=== PATIENT | female | born 1975 | race Two or more races ===

== ENCOUNTER 2016-04-05 12:42 | Emergency (ER) | payer MEDICAID ==
[~2016-04-05] VITALS: Ht 149.9 cm; Wt 98.9 kg
[2016-04-05 17:28] VITALS: BP 101/62
[2016-04-05] MEDS ORDERED: ALBUTEROL SULF 2.5 MG/0.5ML(0.5%) NEB SOLN NEB ONE ×2 (17:45→19:30)
[2016-04-05] MEDS ORDERED: IPRATROPIUM BROM 0.5 MG/2.5ML INH SOL NEB ONE ×2 (17:45→19:30)
[2016-04-05] MEDS ORDERED: methylPREDNISolone SOD SUCC 125 MG/2 ML VL IV ONE (17:45)
== END 2016-04-05 20:45 | disposition home or self-care (01) ==
LOC: ER 12:42
DX: J45.909 Unspecified asthma, uncomplicated (principal); J20.9 Acute bronchitis, unspecified; I10 Essential (primary) hypertension; E07.9 Disorder of thyroid, unspecified
CPT/HCPCS: 71020; 93005; 94640; 96374; 99284; J2930

== ENCOUNTER 2017-04-09 13:24 | Emergency (ER) | payer MEDICAID ==
[~2017-04-09] VITALS: Ht 149.9 cm; Wt 91.2 kg
[2017-04-09 13:38] VITALS: BP 125/80
== END 2017-04-09 16:32 | disposition left against medical advice (07) ==
LOC: ER 13:24
DX: K04.7 Periapical abscess without sinus (principal); Z53.21 Procedure and treatment not carried out due to patient leaving prior to being seen by health care provider

== ENCOUNTER 2017-05-19 11:42 | Emergency (ER) | payer MEDICAID ==
[~2017-05-19] VITALS: Ht 149.9 cm; Wt 99.3 kg
[2017-05-19 12:14] VITALS: BP 94/64
[2017-05-19] MEDS ORDERED: IPRATROPIUM BROM 0.5 MG/2.5ML INH SOL NEB ONE (13:00)
[2017-05-19] MEDS ORDERED: ALBUTEROL SULF 2.5 MG/0.5ML(0.5%) NEB SOLN NEB ONE (13:00)
== END 2017-05-19 14:10 | disposition home or self-care (01) ==
LOC: ER 11:42
DX: J45.901 Unspecified asthma with (acute) exacerbation (principal); G89.29 Other chronic pain; M54.5 Low back pain; I10 Essential (primary) hypertension
CPT/HCPCS: 71046; 94640

== ENCOUNTER 2017-05-22 08:27 | Emergency (ER) | payer MEDICAID ==
[~2017-05-22] VITALS: Ht 149.9 cm; Wt 99.3 kg
[2017-05-22 08:51] VITALS: BP 115/83
[2017-05-22] MEDS ORDERED: ALBUTEROL SULF 2.5 MG/0.5ML(0.5%) NEB SOLN NEB ONE (09:00)
[2017-05-22] MEDS ORDERED: IPRATROPIUM BROM 0.5 MG/2.5ML INH SOL NEB ONE (09:00)
[2017-05-22] MEDS ORDERED: IBUPROFEN 800 MG TAB PO ONE ×2 (10:04→10:15)
== END 2017-05-22 11:55 | disposition home or self-care (01) ==
LOC: ER 08:27
DX: J02.9 Acute pharyngitis, unspecified (principal); J45.909 Unspecified asthma, uncomplicated; I10 Essential (primary) hypertension; E07.9 Disorder of thyroid, unspecified; E66.01 Morbid (severe) obesity due to excess calories; Z68.41 Body mass index [BMI] 40.0-44.9, adult
CPT/HCPCS: 71045; 87804; 94640

== ENCOUNTER 2017-11-28 11:09 | Observation (INO) | payer MEDICAID ==
[~2017-11-28] VITALS: Ht 149.9 cm; Wt 90.7 kg
[2017-11-28 11:54] LABS: Basophils # (auto) 0.1 uL; Eosinophils # (auto) 0.2 uL; Hemoglobin 9.6 g/dL (12.2-16.2); Lymphocytes # (auto) 2.1 uL; Monocytes # (auto) 0.4 uL; Platelet Count (auto) 255 10^3/uL (140-450)
[2017-11-28] MEDS ORDERED: SODIUM CHLORIDE 0.9% 1,000 ML IVB ONE (11:54)
[2017-11-28 11:58] LABS: Basophils % (auto) 1.1 % (0.0-2.0); Eosinophils % (auto) 2.4 % (0.0-7.0); Hematocrit 31.4 % (36.0-46.0); Lymphocytes % (auto) 27.3 % (10.0-50.0); Mean Corpuscular Hemoglobin 20.8 pg (28.0-32.0); Mean Corpuscular Hgb Conc. 30.7 g/dL (32.0-36.0); Mean Corpuscular Volume 67.7 fL (80.0-100.0); Monocytes % (auto) 4.9 % (0.0-12.0); Neutrophils % (auto) 64.3 % (37.0-80.0); Nucleated Red Blood Cells % 0.1 %; Red Blood Cells 4.64 10^6/uL (4.0-5.20); Red Cell Distribution Width 19.8 % (11.8-14.3); White Blood Cell 7.7 10^3/uL (4.4-10.8)
[2017-11-28] MEDS ORDERED: ONDANSETRON HCL 4 MG/2 ML VIAL IV ONE (12:00)
[2017-11-28] MEDS ORDERED: methylPREDNISolone SOD SUCC 125 MG/2 ML VL IV ONE (12:00)
[2017-11-28 12:18] LABS: Alkaline Phosphatase 90 U/L (45-117); Anion Gap 9 (5-15); Aspartate Aminotransferase 28 U/L (15-37); BUN/Creatinine Ratio 13.4; Blood Urea Nitrogen 17 mg/dL (7-18); Carbon Dioxide 25 mmol/L (21-32); Chloride 105 mmol/L (98-107); GFR African American 60 mL/min; GFR Non-African American 49 mL/min; Glucose 111 mg/dL (74-106); Potassium 3.6 mmol/L (3.5-5.1); Sodium 139 mmol/L (136-145)
[2017-11-28 12:19] LABS: Alanine Aminotransferase 27 U/L (13-56); Albumin 3.7 g/dL (3.4-5.0); Bilirubin, Total 0.2 mg/dL (0.2-1.0); Calcium 8.3 mg/dL (8.5-10.1); Magnesium 2.8 mg/dL (1.6-2.6); Total Protein 8.3 g/dL (6.4-8.2)
[2017-11-28 12:58] LABS: Amylase 63 U/L (25-115); Lipase 178 U/L (73-393)
[2017-11-28 13:05] LABS: INR 0.93 (0.9-1.15); Partial Thromboplastin Time 28.8 sec (23.78-33.04)
[2017-11-28 15:50] LABS: Urine Bacteria NONE SEEN /hpf (None Seen); Urine Blood Negative /uL (Negative); Urine Mucus FEW (None Seen); Urine Specific Gravity 1.027 (1.001-1.035); Urine WBC 274 /hpf (0 - 5)
[2017-11-28] MEDS ORDERED: cefTRIAXone 1GM/10ml IVPUSH 10 ML IV ONE (16:00)
[2017-11-28 16:53] VITALS: BP 101/64
== END 2017-11-28 16:57 | disposition home or self-care (01) | DRG 141 ==
LOC: ER 11:09 → EDBD 11:09 → OVERFLOW 11:10 → ER 16:57
PROVIDERS: ADMIT Family Medicine; ATTEND Family Medicine
DX: J45.901 Unspecified asthma with (acute) exacerbation (principal); D50.9 Iron deficiency anemia, unspecified; N39.0 Urinary tract infection, site not specified; R11.2 Nausea with vomiting, unspecified
CPT/HCPCS: 36415; 71045; 80053; 81001; 82150; 83605; 83690; 83735; 84484; 84702; 85025; 85610; 85730; 87040; 93005; 96361; 96374; 96375; 99285; G0378; J0696; J2405; J2930

== ENCOUNTER 2018-01-25 15:39 | Emergency (ER) | payer MEDICAID ==
[~2018-01-25] VITALS: Ht 149.9 cm; Wt 98.9 kg
[2018-01-25 16:12] LABS: Urine Bacteria NONE SEEN /hpf (None Seen); Urine Blood Negative /uL (Negative); Urine Mucus FEW (None Seen); Urine WBC 2 /hpf (0 - 5)
[2018-01-25 16:34] LABS: Basophils # (auto) 0.1 uL; Eosinophils # (auto) 0.3 uL; Lymphocytes # (auto) 1.9 uL; Lymphocytes % (auto) 25.7 % (10.0-50.0); Neutrophils # (auto) 4.6 uL; White Blood Cell 7.3 10^3/uL (4.4-10.8)
[2018-01-25 16:36] LABS: Basophils % (auto) 0.8 % (0.0-2.0); Eosinophils % (auto) 3.9 % (0.0-7.0); Hematocrit 31.2 % (36.0-46.0); Hemoglobin 9.8 g/dL (12.2-16.2); Mean Corpuscular Hemoglobin 21.7 pg (28.0-32.0); Mean Corpuscular Hgb Conc. 31.6 g/dL (32.0-36.0); Mean Corpuscular Volume 68.8 fL (80.0-100.0); Monocytes # (auto) 0.5 uL; Monocytes % (auto) 6.3 % (0.0-12.0); Neutrophils % (auto) 63.3 % (37.0-80.0); Platelet Count (auto) 242 10^3/uL (140-450); Red Blood Cells 4.53 10^6/uL (4.0-5.20); Red Cell Distribution Width 19.5 % (11.8-14.3)
[2018-01-25 16:42] LABS: Albumin 3.9 g/dL (3.4-5.0); BUN/Creatinine Ratio 17.2; Calcium 8.7 mg/dL (8.5-10.1); Potassium 3.8 mmol/L (3.5-5.1)
[2018-01-25 16:44] LABS: Bilirubin, Total 0.2 mg/dL (0.2-1.0); Total Protein 8.2 g/dL (6.4-8.2)
[2018-01-25] MEDS ORDERED: MORPHINE SULFATE 4 MG/ML SYR/VIAL IV ONE (19:45)
[2018-01-25] MEDS ORDERED: ONDANSETRON HCL 4 MG/2 ML VIAL IV ONE (19:45)
[2018-01-25] MEDS ORDERED: metroNIDAZOLE 500 MG TAB PO ONE (20:00)
[2018-01-25 22:20] VITALS: BP 134/72
== END 2018-01-25 22:20 | disposition home or self-care (01) ==
LOC: ER 15:43
DX: K57.90 Diverticulosis of intestine, part unspecified, without perforation or abscess without bleeding (principal); J45.909 Unspecified asthma, uncomplicated; Z88.6 Allergy status to analgesic agent
CPT/HCPCS: 36415; 74176; 80053; 81001; 83690; 84702; 85025; 96374; 96375; 99285; J2270; J2405

== ENCOUNTER 2018-02-15 04:41 | Emergency (ER) | payer MEDICAID ==
[~2018-02-15] VITALS: Ht 149.9 cm; Wt 99.8 kg
[2018-02-15] MEDS ORDERED: SODIUM CHLORIDE 0.9% 500 ML IVB ONE (05:06)
[2018-02-15] MEDS ORDERED: PANTOPRAZOLE 40 MG/10 ML VIAL IV STA (05:06)
[2018-02-15] MEDS ORDERED: ONDANSETRON HCL 4 MG/2 ML VIAL IV ONE (05:15)
[2018-02-15] MEDS ORDERED: HYDROmorphone HCL 2 MG/ML VL IV ONE (05:15)
[2018-02-15 05:50] LABS: Basophils # (auto) 0.1 uL; Hemoglobin 10.1 g/dL (12.2-16.2); Lymphocytes # (auto) 1.7 uL; Neutrophils # (auto) 6.4 uL; White Blood Cell 8.8 10^3/uL (4.4-10.8)
[2018-02-15 05:54] LABS: Basophils % (auto) 0.6 % (0.0-2.0); Eosinophils # (auto) 0.2 uL; Eosinophils % (auto) 2.7 % (0.0-7.0); Hematocrit 31.9 % (36.0-46.0); Lymphocytes % (auto) 18.8 % (10.0-50.0); Mean Corpuscular Hemoglobin 22.2 pg (28.0-32.0); Mean Corpuscular Hgb Conc. 31.5 g/dL (32.0-36.0); Mean Corpuscular Volume 70.2 fL (80.0-100.0); Monocytes # (auto) 0.5 uL; Monocytes % (auto) 5.2 % (0.0-12.0); Neutrophils % (auto) 72.7 % (37.0-80.0); Platelet Count (auto) 237 10^3/uL (140-450); Red Blood Cells 4.54 10^6/uL (4.0-5.20)
[2018-02-15 06:08] LABS: Albumin 4.1 g/dL (3.4-5.0); Calcium 8.9 mg/dL (8.5-10.1); Magnesium 2.6 mg/dL (1.6-2.6); Potassium 3.2 mmol/L (3.5-5.1)
[2018-02-15 06:09] LABS: INR 0.93 (0.9-1.15); Partial Thromboplastin Time 30.3 sec (23.78-33.04)
[2018-02-15 06:11] LABS: BUN/Creatinine Ratio 17.1; Bilirubin, Total 0.4 mg/dL (0.2-1.0); Total Protein 8.7 g/dL (6.4-8.2)
[2018-02-15 08:14] LABS: Urine Bacteria NONE SEEN /hpf (None Seen); Urine Blood Negative /uL (Negative); Urine Mucus FEW (None Seen); Urine Specific Gravity 1.029 (1.001-1.035); Urine WBC 5 /hpf (0 - 5)
[2018-02-15 08:53] VITALS: BP 130/65
[2018-02-15] MEDS ORDERED: POTASSIUM EFFERVESENT TAB 25 MEQ PO ONE (09:00)
== END 2018-02-15 09:21 | disposition home or self-care (01) ==
LOC: ER 04:42
DX: N39.0 Urinary tract infection, site not specified (principal); E87.6 Hypokalemia; J45.909 Unspecified asthma, uncomplicated; E07.9 Disorder of thyroid, unspecified; Z88.8 Allergy status to other drugs, medicaments and biological substances
CPT/HCPCS: 36415; 76705; 80053; 81001; 82150; 83690; 83735; 85025; 85610; 85730; 93005; 94761; 96374; 96375; 99285; C9113; J1170; J2405; J7060; 96361

== ENCOUNTER 2018-03-09 14:55 | Emergency (ER) | payer MEDICAID ==
[~2018-03-09] VITALS: Ht 149.9 cm; Wt 98.9 kg
[2018-03-09 15:26] LABS: Basophils # (auto) 0.1 uL; Basophils % (auto) 0.8 % (0.0-2.0); Eosinophils # (auto) 0.2 uL; Lymphocytes # (auto) 1.4 uL
[2018-03-09 15:28] LABS: Eosinophils % (auto) 2.3 % (0.0-7.0); Hemoglobin 10.6 g/dL (12.2-16.2); Lymphocytes % (auto) 16.3 % (10.0-50.0); Mean Corpuscular Hemoglobin 22.2 pg (28.0-32.0); Mean Corpuscular Hgb Conc. 31.2 g/dL (32.0-36.0); Mean Corpuscular Volume 71.1 fL (80.0-100.0); Monocytes # (auto) 0.4 uL; Monocytes % (auto) 4.3 % (0.0-12.0); Neutrophils # (auto) 6.6 uL; Neutrophils % (auto) 76.3 % (37.0-80.0); Platelet Count (auto) 218 10^3/uL (140-450); Red Blood Cells 4.78 10^6/uL (4.0-5.20); White Blood Cell 8.6 10^3/uL (4.4-10.8)
[2018-03-09 15:31] LABS: Red Cell Distribution Width 20.6 % (11.8-14.3)
[2018-03-09 16:05] LABS: Alanine Aminotransferase 22 U/L (13-56); Albumin 3.8 g/dL (3.4-5.0); Anion Gap 9 (5-15); Aspartate Aminotransferase 16 U/L (15-37); BUN/Creatinine Ratio 13.9; Blood Urea Nitrogen 14 mg/dL (7-18); Calcium 8.4 mg/dL (8.5-10.1); Carbon Dioxide 25 mmol/L (21-32); Chloride 106 mmol/L (98-107); GFR African American 77 mL/min; GFR Non-African American 64 mL/min; Glucose 122 mg/dL (74-106); Magnesium 2.5 mg/dL (1.6-2.6); Potassium 3.6 mmol/L (3.5-5.1); Sodium 140 mmol/L (136-145)
[2018-03-09 16:10] LABS: Alkaline Phosphatase 112 U/L (45-117); Bilirubin, Total 0.2 mg/dL (0.2-1.0); Total Protein 8.1 g/dL (6.4-8.2)
[2018-03-09 18:49] VITALS: BP 114/67
== END 2018-03-09 21:40 | disposition left against medical advice (07) ==
LOC: ER 14:55
DX: R07.9 Chest pain, unspecified (principal); Z53.21 Procedure and treatment not carried out due to patient leaving prior to being seen by health care provider
CPT/HCPCS: 36415; 71046; 80053; 83735; 84443; 84484; 85025; 93005